=== PATIENT | female | born 1930 | race Caucasian/White ===

== ENCOUNTER 2017-04-20 03:56 | Inpatient (IN) | payer OTHER, BC ==
[~2017-04-20] VITALS: Ht 157.5 cm; Wt 55.4 kg
[~2017-04-20 03:56] MED LIST: ACETAMINOPHEN-1 EAC1 PO; AMLODIPINE BESYL5 MG PO; ATIVAN0.5 MG PO; BACTRIM,SEPT1 TABLET PO; BENICAR40 MG PO; CALCIUM 600 +1 EAC9 PO; CEFTIN500 MG PO; CILOSTAZOL50 MG PO; COUMADIN1 MG PO; COUMADIN2.5 MG PO; COUMADIN3 MG PO; DOK PLUS TABLE1 EACH PO; DULCOLAX10 MG PR; DUONEB 2.5-0.5 M3 ML AEROSOL; EFFEXOR37.5 MG PO; EXTRA STRENGTH500 M1 PO; FLEET ENEMA-AD118 ML PR; FLEET MINERAL133 ML PR; FUROSEMIDE20 MG PO; FUROSEMIDE40 MG PO; KLOR-CON M2020 MEQ PO; LABETALOL HCL100 MG PO; LABETALOL HCL200 MG PO; LASIX20 MG PO; LEVAQUIN750 MG PO; MILK OF MAGN PO; MIRALAX17 GM PO; MIRALAX255 GM PO; MIRTAZAPINE7.5 MG PO; NABI650T PO; NEURONTIN100 MG PO; OXAYDO5 MG PO; OXYCODONE HCL5 MG PO; PLAVIX75 MG PO; POLYETHYLENE GL17 GM PO; PROBIOTIC1 EAC1 PO; PROBIOTIC1 EAC2 PO; PROBIOTIC1 EAC7 PO; PROTONIX40 MG PO; PRUNE JUICE PO; REMERON15 M2 PO; ROBITUSSIN DM118 ML PO; SANTYL30 GM TP; SENOKOT,SENN1 TABLET PO; SIMVASTATIN40 MG PO; TRAZODONE HCL50 MG PO; TUMS500 MG PO; TYLENOL EXTRA500 MG PO; TYLENOL REGULA325 MG PO; Tums,OsCal PO; WARFARIN SODIUM1 MG PO; WARFARIN SODIUM3 MG PO; ZOCOR40 MG PO; ZOFRAN4 MG PO
[2017-04-20 04:26] LABS: ADD MIUA? YES; BILIRUBIN NEGATIVE; BLOOD SMALL; COLOR AMBER ((YELLOW)); GLUCOSE (STRIP) NEGATIVE; KETONES NEGATIVE; LEUKOCYTES LARGE; NITRITE NEGATIVE; PROTEIN (STRIP) 30; SPECIFIC GRAVITY 1.011 (1.000-1.030)
[2017-04-20] MEDS ORDERED: CATAPRES-TTS 11 EACH TD (04:31)
[2017-04-20] MEDS ORDERED: LIPITOR20 MG PO (04:32)
[2017-04-20] MEDS ORDERED: COUMADIN2.5 MG PO (04:33)
[2017-04-20] MEDS ORDERED: LASIX40 MG PO (04:34)
[2017-04-20] MEDS ORDERED: COUMADIN3 MG PO (04:34)
[2017-04-20] MEDS ORDERED: OMEPRAZOLE20 MG PO (04:35)
[2017-04-20 04:39] LABS: EOSINOPHIL (%) 0.3 % (0-5); HEMATOCRIT 31.2 % (36.0-46.0); IMMATURE GRANULOCYTE (%) 1.1 % (0.0-0.7); INSTRUMENT ABS NEUTROPHIL CT 2.6 K/uL; LYMPHOCYTE COUNT 0.6 K/uL (1.0-2.8); MCH 31.3 PG (29.0-34.0); MCHC 31.7 G/DL (30.0-36.0); MCV 98.7 FL (83-99); MEAN PLAT.VOLUME 9.3 uM^3 (9.5-12.4); MONOCYTE (%) 12.3 % (3-12); MONOCYTE COUNT 0.5 K/uL (0-0.8); NEUTROPHIL (%) 69.9 % (45-76); NEUTROPHIL COUNT 2.6 K/uL (1.8-6.4); PLATELET COUNT 192 K/uL (156-360); RBC DIS.WIDTH-CV 15.3 % (11.8-14.6); RBC DIS.WIDTH-SD 55.7 % (39-53); RED BLOOD COUNT 3.16 M/uL (3.80-5.20); WHITE BLOOD COUNT 3.7 K/uL (4.1-10.2)
[2017-04-20] MEDS ORDERED: HYDRALAZINE HCL50 MG PO (04:39)
[2017-04-20] MEDS ORDERED: NEURONTIN400 MG PO (04:39)
[2017-04-20] MEDS ORDERED: ONDANSETRON HCL4 MG PO (04:40)
[2017-04-20] MEDS ORDERED: TYLENOL WITH C1 EACH PO (04:41)
[2017-04-20] MEDS ORDERED: TYLENOL REGULA325 MG PO (04:43)
[2017-04-20 04:46] LABS: RED BLOOD CELLS 0-5 /HPF (0-5); UCUL ADDED? YES; WHITE BLOOD CELLS TNTC /HPF (0-5)
[2017-04-20 04:48] LABS: INTER. NORMALIZED RATIO 2.5; PTT 36.9 (25-32)
[2017-04-20 04:53] LABS: CARBON DIOXIDE (BICARBONATE) 33.2 MEQ/L (20-31)
[2017-04-20 04:55] LABS: CHLORIDE 103 mEq/L (99-109); POTASSIUM 3.9 mEq/L (3.7-5.4); SODIUM 140 mEq/L (136-147)
[2017-04-20 04:58] LABS: GLUCOSE 117 mg/dL (70-99)
[2017-04-20 04:59] LABS: ANION GAP 9 MEQ/L (2-14)
[2017-04-20 05:00] LABS: TOTAL BILIRUBIN 0.7 mg/dL (0.0-1.0)
[2017-04-20 05:01] LABS: ALKALINE PHOSPHATASE 198 IU/L (3-129); GFR ESTIMATE (CALCULATED) 25 mL/min/
[2017-04-20 05:03] LABS: DIRECT BILIRUBIN 0.4 mg/dL (0.0-0.3); UREA NITROGEN (BUN) 41 mg/dL (9-23)
[2017-04-20 05:05] LABS: LIPASE 13 U/L (1.0-51.0)
[2017-04-20 08:35] LABS: CHLORIDE 106 mEq/L (99-109); POTASSIUM 3.6 mEq/L (3.7-5.4); SODIUM 140 mEq/L (136-147)
[2017-04-20 08:37] LABS: GLUCOSE 84 mg/dL (70-99)
[2017-04-20 08:38] LABS: ANION GAP 6 MEQ/L (2-14)
[2017-04-20 08:40] LABS: GFR ESTIMATE (CALCULATED) 30 mL/min/
[2017-04-20 08:41] LABS: UREA NITROGEN (BUN) 34 mg/dL (9-23)
[2017-04-20 09:13] VITALS: BP 151/63
[2017-04-20 09:21] VITALS: BP 151/63
[2017-04-20 10:12] VITALS: BP 120/72
[2017-04-20 15:15] VITALS: BP 140/63
[2017-04-20 20:44] VITALS: BP 180/76
[2017-04-21 01:42] VITALS: BP 162/74
[2017-04-21 03:54] VITALS: BP 157/65
[2017-04-21 07:07] VITALS: BP 173/69
[2017-04-21 07:10] LABS: INTER. NORMALIZED RATIO 2.7; PROTHROMBIN TIME 28.5 (9.2-11.2)
[2017-04-21 07:23] LABS: ANION GAP 11 MEQ/L (2-14); CHLORIDE 104 MEQ/L (99-109); GFR ESTIMATE (CALCULATED) 30 mL/min/; GLUCOSE 94 mg/dL (70-99); POTASSIUM 3.6 MEQ/L (3.7-5.4); SAMPLE HEMOLYSIS CHECK 0; SAMPLE ICTERIC CHECK 0; SAMPLE LIPEMIA CHECK 0; SODIUM 139 MEQ/L (136-147); UREA NITROGEN (BUN) 41 mg/dL (9-23)
[2017-04-21 10:45] VITALS: BP 130/60
[2017-04-21 15:25] VITALS: BP 190/71
[2017-04-21 23:10] VITALS: BP 180/72
[2017-04-22 07:31] VITALS: BP 147/55
[2017-04-22 09:24] LABS: INTER. NORMALIZED RATIO 2.9; PROTHROMBIN TIME 30.3 (9.2-11.2)
[2017-04-22 09:35] LABS: ANION GAP 9 MEQ/L (2-14); CHLORIDE 102 MEQ/L (99-109); GFR ESTIMATE (CALCULATED) 30 mL/min/; GLUCOSE 106 mg/dL (70-99); POTASSIUM 3.1 MEQ/L (3.7-5.4); SAMPLE HEMOLYSIS CHECK 0; SAMPLE ICTERIC CHECK 0; SAMPLE LIPEMIA CHECK 0; SODIUM 137 MEQ/L (136-147); UREA NITROGEN (BUN) 49 mg/dL (9-23)
[2017-04-22] MEDS ORDERED: LASIX20 MG PO (14:54)
[2017-04-22 16:15] VITALS: BP 111/46
[2017-04-22 19:59] VITALS: BP 114/55
== END 2017-04-22 19:05 | DRG 689 ==
LOC: EME 03:56 → 5EAST 05:55 → EDOF 05:55 → 5EAST 08:51
PROVIDERS: Emergency Medicine; Internal Medicine
DX: N39.0 Urinary tract infection, site not specified (principal); G93.40 Encephalopathy, unspecified; N17.9 Acute kidney failure, unspecified; I50.9 Heart failure, unspecified; I13.0 Hypertensive heart and chronic kidney disease with heart failure and stage 1 through stage 4 chronic kidney disease, or unspecified chronic kidney disease; N18.3 Chronic kidney disease, stage 3 (moderate); I48.0 Paroxysmal atrial fibrillation; B96.20 Unspecified Escherichia coli [E. coli] as the cause of diseases classified elsewhere; D63.1 Anemia in chronic kidney disease; D72.819 Decreased white blood cell count, unspecified; E78.5 Hyperlipidemia, unspecified; I73.9 Peripheral vascular disease, unspecified; Z89.611 Acquired absence of right leg above knee; Z86.73 Personal history of transient ischemic attack (TIA), and cerebral infarction without residual deficits; Z87.442 Personal history of urinary calculi; Z87.891 Personal history of nicotine dependence; Z95.0 Presence of cardiac pacemaker; Z96.641 Presence of right artificial hip joint
CPT/HCPCS: 70450; 71010; 80048; 80048 91; 80076; 81003; 82803; 83605; 83690; 85025; 85610; 85730; 87040; 87077; 87086; 87186; 93005; 99202; 99281; 99285; J1956; J2310; J7030

== ENCOUNTER 2017-06-15 09:25 | Inpatient (IN) | payer OTHER, BC ==
[~2017-06-15] VITALS: Ht 160 cm; Wt 52.1 kg
[~2017-06-15 09:25] MED LIST changes: +CATAPRES-TTS 11 EACH TD; +EFFEXOR XR75 MG PO; -EFFEXOR37.5 MG PO; +HYDRALAZINE HCL50 MG PO; +LASIX40 MG PO; +LIPITOR20 MG PO; +NEURONTIN400 MG PO; +OMEPRAZOLE20 MG PO; +ONDANSETRON HCL4 MG PO; +TYLENOL WITH C1 EACH PO
[2017-06-15 10:18] LABS: BASOPHIL COUNT 0.1 K/uL (0-0.1); EOSINOPHIL (%) 3.6 % (0-5); EOSINOPHIL COUNT 0.2 K/uL (0-0.3); HEMATOCRIT 45.5 % (36.0-46.0); IMMATURE GRANULOCYTE (%) 1.4 % (0.0-0.7); IMMATURE GRANULOCYTE COUNT 0.1 K/uL; LYMPHOCYTE COUNT 1.3 K/uL (1.0-2.8); MCH 30.5 PG (29.0-34.0); MCHC 29.2 G/DL (30.0-36.0); MCV 104.4 FL (83-99); MEAN PLAT.VOLUME 9.8 uM^3 (9.5-12.4); MONOCYTE (%) 10.3 % (3-12); MONOCYTE COUNT 0.7 K/uL (0-0.8); NEUTROPHIL (%) 63.5 % (45-76); PLATELET COUNT 250 K/uL (156-360); RBC DIS.WIDTH-CV 16.3 % (11.8-14.6); RBC DIS.WIDTH-SD 62.8 % (39-53); RED BLOOD COUNT 4.36 M/uL (3.80-5.20); WHITE BLOOD COUNT 6.3 K/uL (4.1-10.2)
[2017-06-15 10:25] LABS: ADD MIUA? YES; BILIRUBIN NEGATIVE; BLOOD NEGATIVE; COLOR YELLOW ((YELLOW)); GLUCOSE (STRIP) NEGATIVE; KETONES NEGATIVE; LEUKOCYTES MODERATE; NITRITE NEGATIVE; PROTEIN (STRIP) NEGATIVE; SPECIFIC GRAVITY 1.013 (1.000-1.030); UROBILINOGEN 0.2 MG/DL (0.2-1.0)
[2017-06-15 10:26] LABS: INTER. NORMALIZED RATIO 1.6; PROTHROMBIN TIME 18.1 SEC (10.2-12.9)
[2017-06-15 10:29] LABS: PTT 32.7 SEC (25-37)
[2017-06-15 10:30] LABS: CHLORIDE 125 mEq/L (99-109); POTASSIUM 4.5 mEq/L (3.7-5.4)
[2017-06-15 10:32] LABS: GLUCOSE 100 mg/dL (70-99); SODIUM 170 mEq/L (136-147)
[2017-06-15 10:34] LABS: BACTERIA 2+ /HPF; EPITHELIAL CELLS RARE /HPF; MUCUS TRACE /LPF; RED BLOOD CELLS 0-5 /HPF (0-5); UCUL ADDED? YES; WHITE BLOOD CELLS TNTC /HPF (0-5)
[2017-06-15 10:34] LABS: ANION GAP 9 MEQ/L (2-14); TOTAL BILIRUBIN 0.7 mg/dL (0.0-1.0)
[2017-06-15 10:36] LABS: ALKALINE PHOSPHATASE 143 IU/L (3-129); GFR ESTIMATE (CALCULATED) 24 mL/min/
[2017-06-15 10:37] LABS: UREA NITROGEN (BUN) 62 mg/dL (9-23)
[2017-06-15 10:38] LABS: TROP-I INTERPRETATION NEGATIVE; TROPONIN-I 0.12 ng/mL (0.0-0.30)
[2017-06-15] MEDS ORDERED: LASIX40 MG PO (11:39)
[2017-06-15] MEDS ORDERED: K-DUR20 MEQ PO (11:40)
[2017-06-15 15:41] VITALS: BP 136/73
[2017-06-15 19:42] VITALS: BP 146/74
[2017-06-15 23:09] VITALS: BP 146/60
[2017-06-16] VITALS (8 sets, daily range): BP systolic 144–218; BP diastolic 60–89
[2017-06-16 05:45] LABS: BASOPHIL COUNT 0.1 K/uL (0-0.1); EOSINOPHIL (%) 4.7 % (0-5); EOSINOPHIL COUNT 0.3 K/uL (0-0.3); HEMATOCRIT 39.1 % (36.0-46.0); IMMATURE GRANULOCYTE (%) 1.2 % (0.0-0.7); IMMATURE GRANULOCYTE COUNT 0.1 K/uL; INSTRUMENT ABS NEUTROPHIL CT 4.1 K/uL; LYMPHOCYTE COUNT 0.9 K/uL (1.0-2.8); MCH 31.7 PG (29.0-34.0); MCHC 30.2 G/DL (30.0-36.0); MCV 105.1 FL (83-99); MEAN PLAT.VOLUME 10.2 uM^3 (9.5-12.4); MONOCYTE (%) 8.4 % (3-12); MONOCYTE COUNT 0.5 K/uL (0-0.8); NEUTROPHIL (%) 69.3 % (45-76); NEUTROPHIL COUNT 4.1 K/uL (1.8-6.4); PLATELET COUNT 197 K/uL (156-360); RBC DIS.WIDTH-CV 15.6 % (11.8-14.6); RBC DIS.WIDTH-SD 60.7 % (39-53); RED BLOOD COUNT 3.72 M/uL (3.80-5.20)
[2017-06-16 06:29] LABS: ANION GAP 6 MEQ/L (2-14); CHLORIDE 110 MEQ/L (99-109); POTASSIUM 3.8 MEQ/L (3.7-5.4); SAMPLE HEMOLYSIS CHECK 0; SAMPLE ICTERIC CHECK 0; SAMPLE LIPEMIA CHECK 0; UREA NITROGEN (BUN) 45 mg/dL (9-23)
[2017-06-16 06:32] LABS: GFR ESTIMATE (CALCULATED) 35 mL/min/; GLUCOSE 414 mg/dL (70-99); SODIUM 150 MEQ/L (136-147)
[2017-06-16 12:36] LABS: ANION GAP 10 MEQ/L (2-14); CHLORIDE 118 MEQ/L (99-109); POTASSIUM 3.8 MEQ/L (3.7-5.4); SAMPLE HEMOLYSIS CHECK 0; SAMPLE ICTERIC CHECK 0; SAMPLE LIPEMIA CHECK 0
[2017-06-16 12:37] LABS: SODIUM 159 MEQ/L (136-147)
[2017-06-16 12:42] LABS: GFR ESTIMATE (CALCULATED) 38 mL/min/; UREA NITROGEN (BUN) 46 mg/dL (9-23)
[2017-06-16 12:43] LABS: GLUCOSE 83 mg/dL (70-99)
[2017-06-16 18:25] LABS: POINT-OF-CARE METER ID UU13113803
[2017-06-16 19:12] LABS: INTER. NORMALIZED RATIO 1.8; PROTHROMBIN TIME 20.4 SEC (10.2-12.9)
[2017-06-16 19:16] LABS: PTT 39.9 SEC (25-37)
[2017-06-16 19:26] LABS: ANION GAP 10 MEQ/L (2-14); CHLORIDE 113 MEQ/L (99-109); GFR ESTIMATE (CALCULATED) 45 mL/min/; POTASSIUM 3.3 MEQ/L (3.7-5.4); SAMPLE HEMOLYSIS CHECK 0; SAMPLE ICTERIC CHECK 0; SAMPLE LIPEMIA CHECK 0; SODIUM 154 MEQ/L (136-147); UREA NITROGEN (BUN) 46 mg/dL (9-23)
[2017-06-16 19:27] LABS: GLUCOSE 169 mg/dL (70-99)
[2017-06-17] VITALS (8 sets, daily range): BP systolic 135–205; BP diastolic 60–79
[2017-06-17 00:15] LABS: POINT-OF-CARE USER ID ENVMNS
[2017-06-17 03:56] LABS: EOSINOPHIL (%) 5.1 % (0-5); EOSINOPHIL COUNT 0.3 K/uL (0-0.3); HEMATOCRIT 41.3 % (36.0-46.0); IMMATURE GRANULOCYTE (%) 1.6 % (0.0-0.7); IMMATURE GRANULOCYTE COUNT 0.1 K/uL; INSTRUMENT ABS NEUTROPHIL CT 4.6 K/uL; LYMPHOCYTE COUNT 1.2 K/uL (1.0-2.8); MCH 30.7 PG (29.0-34.0); MCHC 30.8 G/DL (30.0-36.0); MCV 99.8 FL (83-99); MEAN PLAT.VOLUME 9.7 uM^3 (9.5-12.4); MONOCYTE (%) 6.6 % (3-12); MONOCYTE COUNT 0.4 K/uL (0-0.8); NEUTROPHIL COUNT 4.6 K/uL (1.8-6.4); NRBC (%) 0.3 /100 WBC (0-0); PLATELET COUNT 213 K/uL (156-360); RBC DIS.WIDTH-CV 15.3 % (11.8-14.6); RBC DIS.WIDTH-SD 56.1 % (39-53); RED BLOOD COUNT 4.14 M/uL (3.80-5.20); WHITE BLOOD COUNT 6.7 K/uL (4.1-10.2)
[2017-06-17 04:00] LABS: INTER. NORMALIZED RATIO 1.8; PROTHROMBIN TIME 20.7 SEC (10.2-12.9)
[2017-06-17 04:02] LABS: SODIUM 152 mEq/L (136-147)
[2017-06-17 04:03] LABS: CHLORIDE 112 mEq/L (99-109); POTASSIUM 4.4 mEq/L (3.7-5.4)
[2017-06-17 04:04] LABS: GLUCOSE 124 mg/dL (70-99)
[2017-06-17 04:06] LABS: ANION GAP 10 MEQ/L (2-14)
[2017-06-17 04:08] LABS: GFR ESTIMATE (CALCULATED) 41 mL/min/
[2017-06-17 04:09] LABS: UREA NITROGEN (BUN) 39 mg/dL (9-23)
[2017-06-18] VITALS (7 sets, daily range): BP systolic 115–183; BP diastolic 50–83
[2017-06-18 12:27] LABS: ANION GAP 11 MEQ/L (2-14); CHLORIDE 108 MEQ/L (99-109); GFR ESTIMATE (CALCULATED) 56 mL/min/; GLUCOSE 99 mg/dL (70-99); POTASSIUM 4.5 MEQ/L (3.7-5.4); SAMPLE HEMOLYSIS CHECK 2; SAMPLE ICTERIC CHECK 0; SAMPLE LIPEMIA CHECK 0; SODIUM 140 MEQ/L (136-147); UREA NITROGEN (BUN) 24 mg/dL (9-23)
[2017-06-18 16:57] LABS: FACTOR Xa INHIBITION (LMWH) 0.51 IU/mL; INTER. NORMALIZED RATIO 1.8
[2017-06-18 17:06] LABS: POTASSIUM 3.7 MEQ/L (3.7-5.4)
[2017-06-19 05:00] VITALS: BP 155/58
[2017-06-19 06:17] LABS: INTER. NORMALIZED RATIO 1.6; PROTHROMBIN TIME 17.7 SEC (10.2-12.9)
[2017-06-19 06:49] LABS: ANION GAP 7 MEQ/L (2-14); CHLORIDE 109 MEQ/L (99-109); GFR ESTIMATE (CALCULATED) 56 mL/min/; GLUCOSE 96 mg/dL (70-99); POTASSIUM 3.8 MEQ/L (3.7-5.4); SAMPLE HEMOLYSIS CHECK 0; SAMPLE ICTERIC CHECK 0; SAMPLE LIPEMIA CHECK 0; SODIUM 142 MEQ/L (136-147); UREA NITROGEN (BUN) 23 mg/dL (9-23)
[2017-06-19 08:45] VITALS: BP 146/68
[2017-06-19 13:24] VITALS: BP 148/66
[2017-06-19 17:17] VITALS: BP 162/60
[2017-06-19 18:55] VITALS: BP 140/50
[2017-06-20 00:24] VITALS: BP 150/50
[2017-06-20 04:55] VITALS: BP 150/60
[2017-06-20 05:30] LABS: INTER. NORMALIZED RATIO 1.8; PROTHROMBIN TIME 20.6 SEC (10.2-12.9)
[2017-06-20 09:25] VITALS: BP 142/65
[2017-06-20 11:50] VITALS: BP 171/69
[2017-06-20 16:16] VITALS: BP 170/82
[2017-06-20 19:56] VITALS: BP 144/65
[2017-06-21 01:00] VITALS: BP 128/58
[2017-06-21 05:30] VITALS: BP 123/73
[2017-06-21 05:34] LABS: INTER. NORMALIZED RATIO 1.8; PROTHROMBIN TIME 19.9 SEC (10.2-12.9)
[2017-06-21 08:00] VITALS: BP 140/80
[2017-06-21 12:08] VITALS: BP 135/64
[2017-06-21 18:03] VITALS: BP 137/59
[2017-06-21 20:45] VITALS: BP 174/72
[2017-06-22 00:13] VITALS: BP 153/69
[2017-06-22 03:55] VITALS: BP 148/63
[2017-06-22 05:23] LABS: INTER. NORMALIZED RATIO 2.1; PROTHROMBIN TIME 23.7 SEC (10.2-12.9)
[2017-06-22 08:59] VITALS: BP 151/78
[2017-06-22 12:22] VITALS: BP 142/80
[2017-06-22 14:53] VITALS: BP 150/89
[2017-06-22] MEDS ORDERED: COUMADIN5 MG PO (18:28)
[2017-06-22] MEDS ORDERED: INVANZ1 GM IM (18:28)
[2017-06-22 20:15] VITALS: BP 158/68
== END 2017-06-23 00:26 | DRG 683 ==
LOC: EME → EDBD 09:25 → EME 09:25 → EDOF 12:30 → 4EAST 12:30 → ENRESERV 12:51 → CANRESERV 13:40 → ENRESERV 13:40 → 4EAST 15:15
PROVIDERS: Emergency Medicine; Family Medicine; Internal Medicine; Internal Medicine Nephrology
DX: N17.9 Acute kidney failure, unspecified (principal); E86.0 Dehydration; G93.89 Other specified disorders of brain; E87.1 Hypo-osmolality and hyponatremia; N18.3 Chronic kidney disease, stage 3 (moderate); E87.0 Hyperosmolality and hypernatremia; I48.91 Unspecified atrial fibrillation; I47.2 Ventricular tachycardia; I48.92 Unspecified atrial flutter; I50.32 Chronic diastolic (congestive) heart failure; I48.2 Chronic atrial fibrillation; I13.0 Hypertensive heart and chronic kidney disease with heart failure and stage 1 through stage 4 chronic kidney disease, or unspecified chronic kidney disease; E78.5 Hyperlipidemia, unspecified; F03.90 Unspecified dementia, unspecified severity, without behavioral disturbance, psychotic disturbance, mood disturbance, and anxiety; L81.9 Disorder of pigmentation, unspecified; N39.0 Urinary tract infection, site not specified; Z96.641 Presence of right artificial hip joint; K21.9 Gastro-esophageal reflux disease without esophagitis; I73.9 Peripheral vascular disease, unspecified; I77.1 Stricture of artery; D63.8 Anemia in other chronic diseases classified elsewhere; Z95.0 Presence of cardiac pacemaker; B96.20 Unspecified Escherichia coli [E. coli] as the cause of diseases classified elsewhere; Z89.611 Acquired absence of right leg above knee; Z87.440 Personal history of urinary (tract) infections; Z95.2 Presence of prosthetic heart valve; Z87.891 Personal history of nicotine dependence; Z88.6 Allergy status to analgesic agent; Z88.1 Allergy status to other antibiotic agents; Z88.0 Allergy status to penicillin; Z86.73 Personal history of transient ischemic attack (TIA), and cerebral infarction without residual deficits; Z87.442 Personal history of urinary calculi
CPT/HCPCS: 70450; 71010; 80048; 80048 91; 80053; 80069; 81003; 82948; 83935; 84300; 84484; 84999; 85025; 85520; 85610; 85730; 87077; 87086; 87186; 92610 GN; 93005; 94640; 94799; 99202; 99281; 99285; J0696; J1335; J1650; J1815; J3480; J7030; J7050; J7070